=== PATIENT | male | born 1980 | race Two or more races ===

== ENCOUNTER 2021-01-29 13:43 | Emergency (ER) | payer OTHER ==
[~2021-01-29] VITALS: Ht 172.7 cm; Wt 103.0 kg
[2021-01-29] MEDS ORDERED: PEPCID AC20 MG PO (18:23)
[2021-01-29] MEDS ORDERED: CARAFATE1 GM PO (18:23)
[2021-01-29] MEDS ORDERED: LEVSIN0.125 MG PO (18:23)
[2021-01-29] MEDS ORDERED: PROTONIX20 MG PO (18:23)
== END 2021-01-29 18:44 | disposition home or self-care (01) ==
LOC: ER 13:43
DX: K29.60 Other gastritis without bleeding (principal); R10.13 Epigastric pain

== ENCOUNTER 2022-12-29 16:53 | Emergency (ER) | payer OTHER ==
[~2022-12-29] VITALS: Ht 172.7 cm; Wt 111.1 kg
[~2022-12-29 16:53] MED LIST: CARAFATE1 GM PO; LEVSIN0.125 MG PO; PEPCID AC20 MG PO; PROTONIX20 MG PO
== END 2022-12-30 01:21 | disposition home or self-care (01) ==
LOC: ER 16:53
PROVIDERS: Emergency Medicine
DX: R53.81 Other malaise (principal); K29.70 Gastritis, unspecified, without bleeding

== ENCOUNTER → 2023-10-29 | Emergency (ER) | payer OTHER | END | disposition left against medical advice (07) | LOC: ER 05:39 | DX: Z53.21 Procedure and treatment not carried out due to patient leaving prior to being seen by health care provider (principal) ==

== ENCOUNTER 2023-11-26 09:11 | Emergency (ER) | payer OTHER ==
[~2023-11-26] VITALS: Ht 152.4 cm; Wt 99.8 kg
[2023-11-26 10:13] LABS: HEMATOCRIT 43.3 % (39.0-48.0); HEMOGLOBIN 15.1 g/dL (13-16.00); MEAN CELL VOLUME 84.4 fL (80.0-100.00); MEAN CORPUSCULAR HEMOGLOBIN 29.5 pg (27.00-32.0); MEAN CORPUSCULAR HGB CONC 34.9 g/dl (32.0-36.0); PLATELET COUNT 209 K/uL (150-450); RED BLOOD COUNT 5.13 M/uL (4.00-6.00); RED CELL DISTRIBUTION WIDTH 13.2 % (11.5-14.5)
[2023-11-26 10:28] LABS: PH,URINE 6.5 (5.0-8.0); URINE APPEARANCE Clear; URINE BILIRRUBIN Negative (NEGATIVE); URINE BLOOD Negative; URINE COLOR Yellow; URINE GLUCOSE Negative (NEGATIVE); URINE LEUKOCYTE Negative; URINE NITRATE Negative; URINE PROTEIN Negative (NEGATIVE)
[2023-11-26 10:33] LABS: URINE BACTERIA 7.5 uL (0.0-1933); URINE WBC 4.4 uL (0.0-23.2)
[2023-11-26 10:39] LABS: URINE CAST 0.15 uL (0.0-1.40); URINE EPITHELIAL CELLS 1.2 uL (0.0-38.8); URINE KETONE 80 (NEGATIVE); URINE RBC 1.3 uL (0.0-20.8)
[2023-11-26 10:44] LABS: CALCIUM 9.8 mg/dL (8.5-10.1); CREATININE SERUM 0.99 mg/dL (0.70-1.30); GFR 82.12; POTASSIUM 3.62 mEq/L (3.5-5.1)
== END 2023-11-26 11:06 | disposition home or self-care (01) ==
LOC: ER 09:11
PROVIDERS: General Practice
DX: B34.9 Viral infection, unspecified (principal)